=== PATIENT | female | born 1990 | race Two or more races ===

== ENCOUNTER 2016-11-18 07:27 | Emergency (ER) | payer OTHER ==
[~2016-11-18 07:27] MED LIST: CLOB15CR TP; HYDR-971 PO; Mirena; ONDA4TAB10 SL; SULF1TAB24 PO
[2016-11-18 07:45] VITALS: BP 147/88
[2016-11-18] MEDS ORDERED: AMOX875T PO (08:06)
[2016-11-18] MEDS ORDERED: ACET-704 PO (08:06)
--- NOTE | 2016-11-18 08:06 | PHYS DOC ---
Past Medical History Past Medical History: STD Additional Past Medical Histor: std tx x2 months ago Past Surgical History: Appendectomy, Alcohol Use: None Drug Use: None Adult General Chief Complaint Chief Complaint: SORE THROAT HPI HPI Patient is a 26 year old female who presents with sore throat here pain that began 2 days ago. Patient denies any fever. Review of Systems Review of Systems Constitutional: Denies fever or chills [] Eyes: Denies change in visual acuity, redness, or eye pain [] HENT: sore throat and ear pain Respiratory: Denies cough or shortness of breath [] Cardiovascular: No additional information not addressed in HPI [] GI: Denies abdominal pain, nausea, vomiting, bloody stools or diarrhea [] : Denies dysuria or hematuria [] Musculoskeletal: Denies back pain or joint pain [] Integument: Denies rash or skin lesions [] Neurologic: Denies headache, focal weakness or sensory changes [] Endocrine: Denies polyuria or polydipsia [] Allergies Allergies Allergies Coded Allergies Type Severity Reaction Last Updated Verified citric acid Allergy Intermediate Throat itches, hands become red and skin peels. 06/25/14 Yes Physical Exam Physical Exam Constitutional: Well developed, well nourished, no acute distress, non-toxic appearance. [] HENT: Normocephalic, atraumatic, bilateral external ears normal, oropharynx moist, no oral exudates, nose normal. [] Posterior pharynx with moderate erythema and mild exudate. Bilateral TM are mildly injected. Eyes: PERRLA, EOMI, conjunctiva normal, no discharge. [] Neck: Normal range of motion, no tenderness, supple, no stridor. [] Cardiovascular:Heart rate regular rhythm, no murmur [] Lungs & Thorax: Bilateral breath sounds clear to auscultation [] Abdomen: Bowel sounds normal, soft, no tenderness, no masses, no pulsatile masses. [] Skin: Warm, dry, no erythema, no rash. [] Back: No tenderness, no CVA tenderness. [] Extremities: No tenderness, no cyanosis, no clubbing, ROM intact, no edema. [] Neurologic: Alert and oriented X 3, normal motor function, normal sensory function, no focal deficits noted. [] Psychologic: Affect normal, judgement normal, mood normal. [] Current Patient Data Vital Signs Vital Signs Date Time Temp Pulse Resp B/P (MAP) Pulse Ox O2 Delivery O2 Flow Rate FiO2 11/18/16 07:45 99.0 96 20 97 Room Air 99.0 EKG EKG [] Radiology/Procedures Radiology/Procedures [] Course & Med Decision Making Course & Med Decision Making Pertinent Labs and Imaging studies reviewed. (See chart for details) Patient is in the ED with ear pain and sore throat. Positive rapid strep. Discharged with amoxicillin for 10 days. Tylenol/ Motrin for pain or fever. Follow-up with primary care doctor in 1-2 weeks. Dragon Disclaimer Dragon Disclaimer This electronic medical record was generated, in whole or in part, using a voice recognition dictation system. Departure Departure Impression: Primary Impression: Pharyngitis, streptococcal, acute Additional Impression: Otitis media Disposition: HOME, SELF-CARE Condition: STABLE Referrals: AMRBIN COLON MD (PCP) Follow-up with your doctor in one week Patient Instructions: Otitis Media, Adult, Strep Throat, Group A Streptococcus Additional Instructions: Your strep test was positive. You also have an ear infection. We sent you home on antibiotics. Take them as prescribed to completion. Follow-up with your doctor in 1-2 weeks. Scripts Acetaminophen With Codeine (TYLENOL WITH CODEINE #3 TABLET) 1 Each Tablet 1 TAB PO PRN Q6HRS Y for PAIN, #30 TAB Prov: DARREN SMITH MACHINE SPLITTER 11/18/16 Amoxicillin (AMOXICILLIN) 875 Mg Tablet 1 TAB PO BID, #20 TAB Prov: DARREN SMITH MACHINE SPLITTER 11/18/16 Problem Qualifiers Additional Impression: Otitis media Otitis media type: other nonsuppurative Laterality: bilateral Chronicity: acute Recurrence: not specified as recurrent Qualified Codes: H65.193 - Other acute nonsuppurative otitis media, bilateral MUTUNGADARREN MACHINE SPLITTER Nov 18, 2016 08:06
[2016-11-18 14:02] LABS: NEGATIVE OBC STREP NEG; POSITIVE OBC STREP POS
== END 2016-11-18 08:13 | disposition home or self-care (01) ==
LOC: ER 07:27
DX: J02.0 Streptococcal pharyngitis (principal); H65.193 Other acute nonsuppurative otitis media, bilateral; Z91.048 Other nonmedicinal substance allergy status
CPT/HCPCS: 87880; 99283

== ENCOUNTER 2016-11-27 19:30 | Emergency (ER) | payer OTHER ==
[~2016-11-27 19:30] MED LIST changes: +ACET-704 PO; +AMOX875T PO
[2016-11-27 19:41] VITALS: BP 158/78
[2016-11-27] MEDS ORDERED: NAPROXEN 500 MG TABLET PO STA (20:01)
[2016-11-27] MEDS ORDERED: METH4TAB2 PO (20:05)
[2016-11-27] MEDS ORDERED: NAPR500T8 PO (20:05)
[2016-11-27] MEDS ORDERED: CYCL10TA2 PO (20:05)
--- NOTE | 2016-11-27 20:05 | PHYS DOC ---
Past Medical History Past Medical History: STD Additional Past Medical Histor: std tx x2 months ago Past Surgical History: Appendectomy, Alcohol Use: None Drug Use: None Adult General Chief Complaint Chief Complaint: BACK PAIN - NO INJURY HPI HPI Patient is a 26 year old female who presents with mild amount of right shoulder pain that began 20 minutes ago prior to coming to the ED. Patient states she was taking a nap when she woke up and realized right shoulder was hurting and came to the ED. Patient denies any known injury. Denies any numbness or tingling to bilateral upper extremities. Denies any chest pain or shortness of breath. Review of Systems Review of Systems Constitutional: Denies fever or chills [] Eyes: Denies change in visual acuity, redness, or eye pain [] : Denies dysuria or hematuria [] Musculoskeletal: Right shoulder pain Integument: Denies rash or skin lesions [] Neurologic: Denies headache, focal weakness or sensory changes [] Endocrine: Denies polyuria or polydipsia [] Current Medications Current Medications Current Medications Medications (Trade) Dose Ordered Sig/Jorge L Start Time Stop Time Status Last Admin Dose Admin Cyclobenzaprine HCl (Flexeril) 10 mg 1X ONCE 11/27/16 20:15 11/27/16 20:16 Naproxen (Naprosyn) 500 mg 1X STAT 11/27/16 20:01 11/27/16 20:03 DC Allergies Allergies Allergies Coded Allergies Type Severity Reaction Last Updated Verified citric acid Allergy Intermediate Throat itches, hands become red and skin peels. 06/25/14 Yes Physical Exam Physical Exam Constitutional: Well developed, well nourished, no acute distress, non-toxic appearance. [] HENT: Normocephalic, atraumatic, bilateral external ears normal, oropharynx moist, no oral exudates, nose normal. [] Eyes: PERRLA, EOMI, conjunctiva normal, no discharge. [] Skin: Warm, dry, no erythema, no rash. [] Back: No tenderness, no CVA tenderness. [] Extremities: Right shoulder with no obvious edema and obvious ecchymosis no obvious deformity. No tenderness on palpation of the right shoulder. Adequate range of motion to the right shoulder including abduction of the shoulder and adduction, plantar flexion and dorsiflexion of the right forearm. Adequate radial medial and ulnar sensation to the right upper extremity. +2 right radial pulse. Cap refill less than 2 seconds the right upper extremity. Sensation intact to the right upper extremity. Neurologic: Alert and oriented X 3, normal motor function, normal sensory function, no focal deficits noted. [] Psychologic: Affect normal, judgement normal, mood normal. [] Current Patient Data Vital Signs Vital Signs Date Time Temp Pulse Resp B/P (MAP) Pulse Ox O2 Delivery O2 Flow Rate FiO2 11/27/16 19:41 97.8 85 18 97 Room Air 97.8 EKG EKG [] Radiology/Procedures Radiology/Procedures [] Course & Med Decision Making Course & Med Decision Making Pertinent Labs and Imaging studies reviewed. (See chart for details) Patient is in the ED with right shoulder pain that began 20 minutes prior to coming to the ED with, pain began after getting up from her nap. Patient has full range of motion, there is no trauma. Highly suspect she could've slept wrong and pulled a muscle. She is given a prescription for Medrol Dosepak naproxen and Flexeril and provided orthopedic doctor for follow-up in 1-2 weeks. Encouraged range of motion as well as icing and elevating the extremity. Dragon Disclaimer Dragon Disclaimer This electronic medical record was generated, in whole or in part, using a voice recognition dictation system. Departure Departure Impression: Primary Impression: Right shoulder strain Disposition: 01 HOME, SELF-CARE Condition: STABLE Referrals: MARBIN COLON MD (PCP) CHELLE ALEXANDRA MD Follow-up in 1-2 weeks as needed Patient Instructions: Shoulder Sprain Additional Instructions: You were seen for possible right shoulder strain. Ice and elevate the extremity. Take it through full range of motion several times a day. Follow-up with your doctor or the provided orthopedic doctor in 1-2 weeks if pain continues. Scripts Methylprednisolone (MEDROL) 4 Mg Tab.ds.pk 1 PKG PO UD, #1 PKG Prov: DARREN SMITH APRN 11/27/16 Cyclobenzaprine Hcl (CYCLOBENZAPRINE HCL) 10 Mg Tablet 1 TAB PO TID, #30 TAB Prov: DARREN SMITH APRN 11/27/16 Naproxen (NAPROXEN) 500 Mg Tablet.dr 1 TAB PO BID, #60 TAB 2 Refills Prov: DARREN SMITH APRN 11/27/16 Problem Qualifiers Primary Impression: Right shoulder strain Encounter type: initial encounter Qualified Codes: S46.911A - Strain of unspecified muscle, fascia and tendon at shoulder and upper arm level, right arm , initial encounter DARREN SMITH APRN Nov 27, 2016 20:05
[2016-11-27] MEDS ORDERED: CYCLOBENZAPRINE 10 MG TABLET. PO ONE (20:15)
== END 2016-11-27 20:15 | disposition home or self-care (01) ==
LOC: ER 19:30
DX: S46.911A Strain of unspecified muscle, fascia and tendon at shoulder and upper arm level, right arm, initial encounter (principal); Z88.8 Allergy status to other drugs, medicaments and biological substances; X58.XXXA Exposure to other specified factors, initial encounter; Y93.89 Activity, other specified; Y92.89 Other specified places as the place of occurrence of the external cause; Y99.8 Other external cause status
CPT/HCPCS: 99283

== ENCOUNTER 2018-01-28 12:05 | Emergency (ER) | payer OTHER ==
[~2018-01-28] VITALS: Ht 160 cm; Wt 106.1 kg
[~2018-01-28 12:05] MED LIST changes: +CYCL10TA2 PO; +METH4TAB2 PO; +NAPR500T8 PO
[2018-01-28] MEDS ORDERED: ALBUTEROL SULFATE 2.5 MG/3 ML NEBU. NEB ONE (13:00)
[2018-01-28] MEDS ORDERED: PROAIR HFA8.5 GM INH (13:36)
--- NOTE | 2018-01-28 13:37 | PHYS DOC ---
Past Medical History Past Medical History: STD Additional Past Medical Histor: std tx x2 months ago Past Surgical History: Appendectomy, Alcohol Use: None Drug Use: None Adult General Chief Complaint Chief Complaint: Congestion HPI HPI Patient is a 28 year old female who presents with cold symptoms and a feeling of tightness in her chest at times. The patient is . The patient does have a history of asthma. She does not have an inhaler at home. 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 She does not have a medication list from her dental practitioner. Review of Systems Review of Systems Constitutional: Denies fever or chills [] Eyes: Denies change in visual acuity, redness, or eye pain [] HENT: See history of present illness Respiratory: See history of present illness Cardiovascular: No additional information not addressed in HPI [] GI: Denies abdominal pain, nausea, vomiting, bloody stools or diarrhea [] : Denies dysuria or hematuria [] Musculoskeletal: Denies back pain or joint pain [] Integument: Denies rash or skin lesions [] Neurologic: Denies headache, focal weakness or sensory changes [] Endocrine: Denies polyuria or polydipsia [] All other systems were reviewed and found to be within normal limits, except as documented in this note. Current Medications Current Medications Current Medications Medications (Trade) Dose Ordered Sig/Jorge L Start Time Stop Time Status Last Admin Dose Admin Albuterol Sulfate (Ventolin Neb Soln) 2.5 mg 1X ONCE 01/28/18 13:00 01/28/18 13:01 DC 01/28/18 13:04 2.5 MG Allergies Allergies Allergies Coded Allergies Type Severity Reaction Last Updated Verified citric acid Allergy Intermediate Throat itches, hands become red and skin peels. 06/25/14 Yes Physical Exam Physical Exam Constitutional: Well developed, well nourished, no acute distress, non-toxic appearance. [] HENT: Normocephalic, atraumatic, bilateral tympanic membranes normal, oropharynx moist, no oral exudates, sinus drainage noted to back of throat Eyes: PERRLA, EOMI, conjunctiva normal, no discharge. [] Neck: Normal range of motion, no tenderness, supple, no stridor. [] Cardiovascular:Heart rate regular rhythm, no murmur [] Lungs & Thorax: Bilateral breath sounds are decreased to bilateral upper lobes Abdomen: Bowel sounds normal, soft, no tenderness, no masses, no pulsatile masses. [] Skin: Warm, dry, no erythema, no rash. [] Neurologic: Alert and oriented X 3, normal motor function, normal sensory function, no focal deficits noted. [] Psychologic: Affect normal, judgement normal, mood normal. [] Current Patient Data Vital Signs Vital Signs Date Time Temp Pulse Resp B/P (MAP) Pulse Ox O2 Delivery O2 Flow Rate FiO2 01/28/18 13:54 76 18 119/68 (85) 98 Room Air 01/28/18 12:12 98.7 98.7 EKG EKG [] Radiology/Procedures Radiology/Procedures [] Course & Med Decision Making Course & Med Decision Making Pertinent Labs and Imaging studies reviewed. (See chart for details) []Following demonstration of an albuterol nebulized treatment patient states that she has improved. Her breath sounds are now clear throughout. Dragon Disclaimer Dragon Disclaimer This electronic medical record was generated, in whole or in part, using a voice recognition dictation system. Departure Departure Impression: Primary Impression: Asthma exacerbation Disposition: HOME, SELF-CARE Condition: STABLE Referrals: POONAM HUSAIN (PCP) Patient Instructions: Asthma, Adult Additional Instructions: Use the inhaler for shortness of air as needed. Follow-up with your dental practitioner for further direction on what you may take for cold symptoms. If worsening please return to the emergency department. Scripts Albuterol Sulfate (PROAIR HFA INHALER) 8.5 Gm Hfa.aer.ad 1 PUFF INH PRN Q6HRS PRN for SHORTNESS OF BREATH, #1 INHALER 3 Refills Prov: GEETA WATERS APRN 01/28/18 GEETA WATERS APRN Jan 28, 2018 13:37
[2018-01-28 13:54] VITALS: BP 119/68
== END 2018-01-28 13:54 | disposition home or self-care (01) ==
LOC: ER 12:05
DX: O99.512 Diseases of the respiratory system complicating pregnancy, second trimester (principal); J45.901 Unspecified asthma with (acute) exacerbation; Z90.49 Acquired absence of other specified parts of digestive tract; Z91.048 Other nonmedicinal substance allergy status; Z3A.26 26 weeks gestation of pregnancy
CPT/HCPCS: 94640; 99283; J7613